=== PATIENT | female | born 1950 | race Caucasian/White ===

== ENCOUNTER → 2018-02-04 07:51 | Outpatient (CLI) | payer BC, SELFPAY ==
[2018-02-04 10:41] LABS: ALB/GLOB Ratio 0.9 RATIO (0.9-2.4); AST(SGOT) 17 U/L (15-37); Alanine Aminotransfer ALT/SGPT 29 U/L (13-56); Albumin, Serum 3.7 g/dL (3.2-5.0); Alkaline Phosphatase 103 U/L (45-117); Anion Gap 8 (5-15); BUN 18 mg/dL (7-18); BUN/Creat Ratio 20.7 RATIO (10-20); Calcium,Total 9.8 mg/dL (8.5-10.1); Chloride 107 mmol/L (98-107); Cholesterol 163 mg/dL (200); Creatinine, Serum 0.87 mg/dL (0.55-1.02); EST Glomerular Filtration Rate 69 mL/min (>60); Est Glom Filt Rate - Afr Amer 83 mL/min (>60); Globulin 3.9 g/dL (2.2-4.2); Glucose 95 mg/dL (74-106); High Density Lipoprotein 47 mg/dL; Potassium 4.2 mmol/L (3.5-5.1); Protein, Total 7.6 g/dL (6.4-8.2); Sodium Level 143 mmol/L (136-145); Triglycerides 161 mg/dL; Very Low Density Lipoprotein 32 mg/dL (5-40)
== END ==
PROVIDERS: Family Provider Family Medicine; PCP Family Medicine; Visit Provider Family Medicine
DX: Z00.00 Encounter for general adult medical examination without abnormal findings (principal)
CPT/HCPCS: 36415; 80053; 80061

== ENCOUNTER → 2018-02-20 09:29 | Outpatient (CLI) | payer BC, SELFPAY | PROVIDERS: Family Provider Family Medicine; PCP Family Medicine; Visit Provider Family Medicine | DX: Z12.31 Encounter for screening mammogram for malignant neoplasm of breast (principal) | CPT/HCPCS: 77063; 77067 ==

== ENCOUNTER → 2019-03-07 | Outpatient (CLI) | payer BC, SELFPAY ==
[2018-12-11 13:51] VITALS: BMI 26.6
[2019-03-07 13:59] LABS: Absolute Lymphocyte Count 1.59 X10^3/uL (0.83-4.51); Absolute Neutrophil Count 3.4 X10^3/uL (2.0-7.7); Basophil# 0.05 X10^3/uL; Basophil% 0.9 % (0-1); Eosinophil# 0.12 X10^3/uL; Eosinophils% 2.2 % (0-5); Hematocrit 48.9 % (37-47); Hemoglobin 16.3 g/dL (12.0-15.0); Lymphocyte # 1.59 X10^3/ul (4.0); Lymphocyte % 28.6 % (19-41); Mean Corp Hgb Conc 33.3 g/dL (32-36); Mean Corpuscular Hgb 29.6 pg (27.0-32.0); Mean Corpuscular Volume 88.7 fL (81-99); Mean Platelet Vol. 9.9 fl (6.2-12.0); Monocyte# 0.41 X10^3/uL; Monocyte% 7.4 % (0-10); NRBC Flagged by Analyzer 0 % (0-5); Neutrophil # 3.38 X10^3/uL (2.7-7.7); Neutrophil % 60.7 % (47-70); Platelet Count 278 K/mm3 (150-450); RBC Distribution Width CV 11.9 % (11.6-14.6); RBC Distribution Width SD 38.7 fl (35.1-43.9); Red Blood Count 5.51 M/mm3 (4.2-5.4); White Blood Count 5.6 K/mm3 (4.4-11.0)
[2019-03-07 14:21] LABS: Microalbumin,Random Urine 21.1 mg/L (NO RANGE EST.); Microalbumin:Creatinine Ratio 16.4 mg/g CRE (<30 mg/g CRE)
[2019-03-07 14:24] LABS: ALB/GLOB Ratio 1.1 RATIO (0.9-2.4); AST(SGOT) 18 U/L (15-37); Alanine Aminotransfer ALT/SGPT 23 U/L (13-56); Alkaline Phosphatase 117 U/L (45-117); Anion Gap 5 (5-15); BUN 17 mg/dL (7-18); BUN/Creat Ratio 20.8 RATIO (10-20); Calcium,Total 10.4 mg/dL (8.5-10.1); Chloride 107 mmol/L (98-107); Creatinine, Serum 0.82 mg/dL (0.55-1.02); EST Glomerular Filtration Rate 74 mL/min (>60); Est Glom Filt Rate - Afr Amer 89 mL/min (>60); Ferritin 273 ng/mL (8-252); Globulin 3.8 g/dL (2.2-4.2); Glucose 91 mg/dL (74-106); Potassium 4.1 mmol/L (3.5-5.1); Protein, Total 7.8 g/dL (6.4-8.2); Sodium Level 142 mmol/L (136-145); Thyroid Stim Hormone (TSH) 0.96 uIU/mL (0.358-3.74)
== END | disposition home or self-care (01) ==
LOC: MFPLAB 12:18
PROVIDERS: Family Provider Family Medicine; PCP Family Medicine; Visit Provider Family Medicine
DX: I10 Essential (primary) hypertension (principal); R68.89 Other general symptoms and signs
CPT/HCPCS: 36415; 80053; 82043; 82570; 82728; 84443; 85025

== ENCOUNTER → 2019-03-16 | Outpatient (CLI) | payer BC, SELFPAY ==
[2018-12-11 13:51] VITALS: BMI 26.6
[2019-03-16 18:24] LABS: Iron 112 ug/dL (50-170); Iron Binding Capacity,Total 355 ug/dL (250-450); Magnesium 2.6 mg/dL (1.6-2.6); PERCENT IRON SATURATION 31.5 % (15.0-55.0)
[2019-03-17 10:03] LABS: PTHIN 100.4 pg/mL (18.4-80.1)
[2019-03-21 13:52] LABS: Transferrin 274 mg/dL (200-370)
== END | disposition home or self-care (01) ==
LOC: MFPLAB 16:54
PROVIDERS: Family Provider Family Medicine; PCP Family Medicine; Referring Provider Family Medicine; Visit Provider Family Medicine
DX: E83.10 Disorder of iron metabolism, unspecified (principal); E83.52 Hypercalcemia
CPT/HCPCS: 36415; 82330; 83540; 83550; 83735; 83970; 84466

== ENCOUNTER → 2019-03-21 | Outpatient (CLI) | payer BC, SELFPAY ==
[2018-12-11 13:51] VITALS: BMI 26.6
[2019-03-21 12:37] LABS: Absolute Lymphocyte Count 1.81 X10^3/uL (0.83-4.51); Absolute Neutrophil Count 3.2 X10^3/uL (2.0-7.7); Basophil# 0.03 X10^3/uL; Basophil% 0.5 % (0-1); Eosinophil# 0.34 X10^3/uL; Eosinophils% 5.9 % (0-5); Hematocrit 44.6 % (37-47); Hemoglobin 14.6 g/dL (12.0-15.0); Lymphocyte # 1.81 X10^3/ul (4.0); Lymphocyte % 31.2 % (19-41); Mean Corp Hgb Conc 32.7 g/dL (32-36); Mean Corpuscular Hgb 28.9 pg (27.0-32.0); Mean Corpuscular Volume 88.1 fL (81-99); Mean Platelet Vol. 9.9 fl (6.2-12.0); Monocyte# 0.38 X10^3/uL; Monocyte% 6.5 % (0-10); NRBC Flagged by Analyzer 0 % (0-5); Neutrophil # 3.23 X10^3/uL (2.7-7.7); Neutrophil % 55.6 % (47-70); Platelet Count 242 K/mm3 (150-450); RBC Distribution Width CV 11.9 % (11.6-14.6); RBC Distribution Width SD 38.4 fl (35.1-43.9); Red Blood Count 5.06 M/mm3 (4.2-5.4); White Blood Count 5.8 K/mm3 (4.4-11.0)
[2019-03-21 12:58] LABS: Microalbumin,Random Urine 11.8 mg/L (NO RANGE EST.)
[2019-03-21 13:03] LABS: ALB/GLOB Ratio 1.1 RATIO (0.9-2.4); AST(SGOT) 13 U/L (15-37); Alanine Aminotransfer ALT/SGPT 22 U/L (13-56); Alkaline Phosphatase 128 U/L (45-117); Anion Gap 6 (5-15); BUN 22 mg/dL (7-18); BUN/Creat Ratio 29.8 RATIO (10-20); Calcium,Total 10.5 mg/dL (8.5-10.1); Chloride 108 mmol/L (98-107); Creatinine, Serum 0.74 mg/dL (0.55-1.02); EST Glomerular Filtration Rate 83 mL/min (>60); Est Glom Filt Rate - Afr Amer 100 mL/min (>60); Globulin 3.7 g/dL (2.2-4.2); Glucose 87 mg/dL (74-106); Magnesium 2.4 mg/dL (1.6-2.6); Protein, Total 7.7 g/dL (6.4-8.2); Sodium Level 141 mmol/L (136-145)
[2019-03-22 19:13] LABS: PROEL- A/G Ratio 1.2 (0.7-1.7); PROEL- Albumin 3.8 g/dL (2.9-4.4); PROEL- Alpha-1 Globulin 0.3 g/dL (0.0-0.4); PROEL- Alpha-2 Globulin 0.8 g/dL (0.4-1.0); PROEL- Beta Globulin 1.2 g/dL (0.7-1.3); PROEL- Gamma Globulin 1.1 g/dL (0.4-1.8); PROEL- Globulin, Total 3.3 g/dL (2.2-3.9); PROEL- TOTAL PROTEIN 7.1 g/dL (6.0-8.5)
== END | disposition home or self-care (01) ==
LOC: MFPLAB 10:54
PROVIDERS: Family Provider Family Medicine; PCP Family Medicine; Visit Provider Family Medicine
DX: I10 Essential (primary) hypertension (principal); E83.52 Hypercalcemia
CPT/HCPCS: 36415; 80053; 82043; 82306; 82570; 83735; 84165; 85025

== ENCOUNTER → 2019-03-31 | Outpatient (CLI) | payer BC, SELFPAY ==
[2018-12-11 13:51] VITALS: BMI 26.6
--- NOTE | 2019-03-31 11:53 | US_ITS ---
STUDY: THYROID ULTRASOUND REASON FOR EXAM: Female, 68 years old. Hyperparathyroidism TECHNIQUE: Ultrasound evaluation of the thyroid was performed with real-time and static hooker-scale imaging. COMPARISON: None. FINDINGS: RIGHT LOBE: The right lobe of the thyroid gland measures 4.4 x 1.9 x 1.4 cm. There is a homogeneous echotexture. 8 mm hypoechoic nodule the right lobe consistent with an adenoma. Another 6 mm hypoechoic nodule more posteriorly consistent with an adenoma. Another 8 mm hypoechoic nodule consistent with another adenoma. Another 6 mm hypoechoic nodule consistent with an adenoma. LEFT LOBE: The left lobe of the thyroid gland measures 3.8 x 1.7 x 1.1 cm. There is a homogeneous echotexture. 4 mm hypoechoic nodule left lobe consistent with an adenoma. Another 4 mm hypoechoic nodule medially in the left lobe consistent with an adenoma. ISTHMUS: The isthmus measures 3 9 m thick. . There are small hypoechoic areas posterior to the thyroid gland on the right measuring 8 mm in diameter which may represent the parathyroid gland. US/Thyroid IMPRESSION: 1. Multinodular thyroid gland but no dominant nodule requiring biopsy. 2. Questionable 8 mm right parathyroid gland Electronically Signed: Dario Sin MD at 13:49 EDT Tel , Service support ,
== END | disposition home or self-care (01) ==
LOC: US 11:48
PROVIDERS: Family Provider Family Medicine; PCP Family Medicine; Referring Provider Family Medicine; Visit Provider Family Medicine
DX: E21.5 Disorder of parathyroid gland, unspecified (principal)
CPT/HCPCS: 76536

== ENCOUNTER 2019-04-07 15:30 | Outpatient (RCR) | payer BC, SELFPAY ==
[2018-12-11 13:51] VITALS: BMI 26.6
--- NOTE | 2019-03-24 13:45 | HP.PTEVAL ---
Patient's Visit Information FROYLAN SELF is a 68 year old F referred to Physical Therapy by Jaciel Jaime MD with a diagnosis of R RTC tendonosis. Date of Evaluation: 03/16/19 Physical Therapist: Demarcus Salomon DPT - Visit Plan Frequency: 1x/Week Duration: 8 weeks Plan: Start wtih US to subacromial space, AAROM of R shoulder, mid trap/scapular strengthening. Progress HEP as tolerated. - Subjective Findings: Pt. is here today for her initial evaluiation with diagnosis of R shoulder pain, rotator cuff tendonsis. Pt. reports having R shoulder pain for a few weeks to a few months. Pt. reports having xrays which came back without issues. Pt. denies mech of injury. Pt. reports having increased pain with sleeping, raising her arm and some ADLs that cause her to rotate her arm. Pt. reports having some relief with ibuprophen and or alieve. pt. reports no completing any exercises at this point in time. Pt. is able to complete most activities, but has some increased pain throughout. Pt. is hopeful to reduce symptoms in order to get back to all recreational and household activities without limitations. - Pain R shoulder Pain Intensity (Out of 10): 2 Pain Intensity Range: 0, 6 - Objective POSTURE: Pt. has slight forward shoulder posture, FH posture. Pt. is able to improve, but difficult to maintain. PALPATION: Pt. has tenderness at anterior and lateral aspects of subacromial joint. NEURO: normal throughout bilateral UEs. ROM: R shoulder: flexion 170deg increase NE starting at 130deg; abd 165deg increase NW, functional ER C4, functional IR L3 mild increase nW,. MMT: 4+/5 throughout. Pt. has increase pain with flexion and abd testing. - Special Tests R Shoulder External Rotation Lag Test - RC Tear: Negative R Shoulder Lift Off Test - Subscapular Tear: Negative R Shoulder Drop Sign - IS Test: Negative R Shoulder Empty Can - SS: Positive R Shoulder Belly Press - SupScap: Negative R Shoulder Neer - Impingement: Positive R Shoulder Biceps Load Test - Labrum: Negative R Shoulder Yeargasons - SLAP: Negative - Goals Goal 1:: Pt. to be I with HEP. Goal Time Frame: 4-6 Weeks Goal 2:: Pt. to have full R shoulder ROM without increase in symptoms. Goal Time Frame: 4-6 Weeks Goal 3:: Pt. to have increased R shoulder strength by 1/2 grade of all effected musculature. Goal Time Frame: 4-6 Weeks Goal 4:: Pt. to sleep throughout the night without increase in symptoms. Goal Time Frame: 4-6 Weeks Goal 5:: Pt. complete all household and ADLs without increas in symptoms. Goal Time Frame: 4-6 Weeks - Rehabilitation Potential Physical Therapy Diagnosis: Pt. has signs and symptoms consistent with R RTC tendonitis. PT. has decent ROM, but has pain with overhead motions. Pt. has adequate strength, but is still weak with overhead motions and with external rotation. Pt. would benefit from PT to increase her strength, reduce symptoms and get back to all recreational activities with reduced symptoms. Rehabilitation Potential: Good - Anticipated Interventions Patient/Client Instruction: Educate patient on: Condition, Plan of Care, Risk Factors, Benefits of Fitness Program For the Purpose of:: To facilitate caregiver knowledge, To improve self management, To prevent re-injury, To improve ability to perform tasks related to life management, To improve tolerance to ADL's Therapeutic Exercise to Include: Strength training, Power training, Endurance training, Postural training, Flexibilty training, Passive ROM, Active ROM, Scapular Strength/Stabilization For the Purpose of:: To decrease pain, To increase ROM, To improve nutrient delivery to tissue, To increase oxygenation perfusion, To improve muscle performance and motor function, To improve ability to perform ADL's, To decrease level of supervision to perform tasks, To improve health of tissue, To decrease soft tissue restriction, To increase flexibility/ROM Cryotherapy (ice pack, ice massage): Yes Thermo therapy (hot pack): Yes Ultrasound (thermal/non thermal): Yes For the Purpose of:: To decrease pain, To decrease swelling/inflammation, To increase ROM, To improve nutrient delivery to tissue, To increase oxygenation perfusion, To improve muscle performance and motor function Thank you for the opportunity to evaluate your patient. For Medicare and Medicare HMO plans, please review the plan of care and approve it. It will need to be FAXED BACK to us at [phone] for Medicare purposes. For Medicare only, by signing this I certify the plan of care. Please let me know if there are questions or concerns regarding this plan of care. Physician Signature: Date:
--- NOTE | 2019-10-04 08:52 | HP.PTDCNRP_ITS ---
FROYLAN SELF was seen in my office for initial evaluation on 03/16/19. The following Plan of Care was established for this patient: Initial Frequency: 1x/Week Initial Duration: 8 weeks Patient/Client Instruction: Educate patient on: Condition, Plan of Care, Risk Factors, Benefits of Fitness Program For the Purpose of:: To facilitate caregiver knowledge, To improve self management, To prevent re-injury, To improve ability to perform tasks related to life management, To improve tolerance to ADL's Therapeutic Exercise to Include: Strength training, Power training, Endurance training, Postural training, Flexibilty training, Passive ROM, Active ROM, Sca pular Strength/Stabilization For the Purpose of:: To decrease pain, To increase ROM, To improve nutrient delivery to tissue, To increase oxygenation perfusion, To improve muscle performance and motor function, To improve ability to perform ADL's, To decrease level of supervision to perform tasks, To improve health of tissue, To decrease soft tissue restriction, To increase flexibility/ROM Cryotherapy (ice pack, ice massage): Yes Thermo therapy (hot pack): Yes Ultrasound (thermal/non thermal): Yes For the Purpose of:: To decrease pain, To decrease swelling/inflammation, To increase ROM, To improve nutrient delivery to tissue, To increase oxygenation perfusion, To improve muscle performance and motor function This patient was last seen in our office 06/07/19. Pertinent comments regarding their Physical therapy will appear below: Pt. has not been seen in several months and will be DC from PT at this point in time. At this point I will be discontinuing this patient from physical therapy. I would be happy to see this patient again in the future if found appropriate by the physician. Thank you! Demarcus Salomon, VIANEYT
== END 2019-04-07 19:00 | disposition home or self-care (01) ==
LOC: PT 15:30
PROVIDERS: Family Provider Family Medicine; PCP Family Medicine; Referring Provider Family Medicine; Visit Provider Family Medicine
DX: M25.511 Pain in right shoulder (principal); M75.101 Unspecified rotator cuff tear or rupture of right shoulder, not specified as traumatic
CPT/HCPCS: 97035; 97110; 97161

== ENCOUNTER → 2019-04-26 | Outpatient (CLI) | payer BC, SELFPAY ==
[2019-04-19 09:03] VITALS: BMI 26.6
--- NOTE | 2019-04-26 09:41 | NM_ITS ---
CLINICAL: 68-year-old female with reported history of hypercalcemia. 99m Tc SESTAMIBI DUAL PHASE PARATHYROID SCINTIGRAPHY COMPARISON: None available FINDINGS: Following the intravenous administration of 25.0 mCi of 99m Tc sestamibi, image acquisitions of the anterior neck at approximately 20 minutes and 2.0 hours post radiopharmaceutical provision reveal: 1. Immediate static blood pool acquisitions demonstrate relatively uniform distribution of the radiopharmaceutical in the right-left thyroid colloid was subtle accentuated uptake noted in the inferior pole of the right thyroid bed. 2. Delayed images depict persistent tracer concentration noted in the region of the inferior pole of the right thyroid bed with near complete washout of the radiotracer otherwise defined. NM/Parathyroid Scan IMPRESSION: 1. The persistently visualized increase in radiopharmaceutical concentration defined in the inferior pole of the right thyroid bed likely represents the presence of parathyroid adenoma. Electronically Signed: Dario Mark DO at 23:38 EST Tel , Service support ,
== END | disposition home or self-care (01) ==
LOC: NM 09:40
PROVIDERS: Family Provider Family Medicine; PCP Family Medicine; Referring Provider Surgery; Visit Provider Surgery
DX: E34.9 Endocrine disorder, unspecified (principal); E83.52 Hypercalcemia
CPT/HCPCS: 78070; A9500

== ENCOUNTER 2019-05-16 10:12 | Day surgery (SDC) | payer BC, SELFPAY ==
--- NOTE | 2019-04-28 01:23 | HP_ITS ---
Intake Vital Signs 04/28/19 Body Mass Index (BMI) 26.6 Intake Visit Reasons: Test Results Chief Complaint: RASH/ABD PAIN Assistant Research Scientist Required: No Is patient in pain?: No Allergies bacitracin [From Neosporin Plus] Allergy (Severe, Verified 04/28/19 12:55) unknown indomethacin [From Indocin] Allergy (Severe, Verified 04/28/19 12:55) unknown lidocaine [From Neosporin Plus] Allergy (Severe, Verified 04/28/19 12:55) unknown neomycin [From Neosporin Plus] Allergy (Severe, Verified 04/28/19 12:55) unknown polymyxin B [From Neosporin Plus] Allergy (Severe, Verified 04/28/19 12:55) unknown pramoxine [From Neosporin Plus] Allergy (Severe, Verified 04/28/19 12:55) unknown prednisone Allergy (Severe, Verified 04/28/19 12:55) unknown tramadol [From Ultram] Allergy (Severe, Verified 04/28/19 12:55) unknown Medications atorvastatin 10 mg tablet 10 mg PO QDAY 10/08/17 [History Confirmed 04/28/19] multivitamin,fs-xoem-xnhhnarn tablet 1 tab PO QDAY 10/08/17 [History Confirmed 04/28/19] amlodipine 2.5 mg tablet 10 mg PO QDAY tab 04/19/19 [History Confirmed 04/28/19] PFSH Medical History Arthritis (Acute) Cancer (Acute) Chest pain (Acute) Fatigue (Acute) Hay fever (Acute) Knee pain (Acute) Hypertension (Chronic) Surgical History S/P laparoscopic cholecystectomy (Acute) Family History Mother Asthma Kidney disease Thyroid disorder Father Heart disease Hypertension CAD (coronary artery disease) Sister Seizures Social History (Updated 04/28/19 @ 13:23 by Neel Hall MD) Smoking Status: Never smoker alcohol intake: never HPI HPI HPI: FROYLAN SELF, is a 68 F who presents to the office today for HPI HPI Surgical H&P: Yes HPI: FROYLAN SELF, is a 68 F who presents to the office today for Follow-up from a sestamibi scan. Patient underwent a sestamibi scan it was [facility] on 04/26/2019. Impression was persistently visualized increased radio pharmacological concentration defined in the inferior pole of the right thyroid bed likely representing the presence of a parathyroid adenoma. She has Been evaluation for hyperparathyroidism has had an serum calcium level greater than 10 PTH greater than 100 and recently an ultrasound of the neck which showed a questionable 8 mm right parathyroid adenoma. Patient however has not had a sestamibi scan. She is not complaining of any muscle aches or pains she has no history of's stones she has no family history of multiple endocrine neoplasia syndrome ROS General General: No weight change, appetite, fatigue, colon cancer, breast cancer or weakness HEENT HEENT: Yes difficulty swallowing; no eye injury, eye surgery, swollen glands or hoarseness Endo Endocrine: No thyroid disease, diabetes mellitus, thyroid cancer, Hair loss, heat intolerance or cold intolerance Skin Skin: No rash or changing moles Breast Breast: No left breast lump, right breast lump, nipple discharge, breast pain, abnormal mammogram, abnormal US or breast enlargement Musc Musculoskeletal: Yes arthritis; no back problems, rheumatoid arthritis, gout or joint pain Cardio Cardiovascular: Yes high blood pressure; no murmur, pacemaker, heart disease, atrial fibrillation, heart attack, heart stent, palpitations, shortness of breat with exertion or chest pain Psych Psychiatric: No depression, anxiety or hearing voices Resp Respiratory: No shortness of breath, No sleep apnea, Yes cough, No COPD, No asthma, No emphysema, No wheezing Gastro Gastrointestinal: No abdominal pain, No nausea or vomiting, No diarrhea, No constipation, No blood in stool, Yes acid reflux, No hemorrhoids, No ulcers, No gallbladder problem, No black,tarry stools Jose Hematologic: No blood thinners, No blood disorders, No bleeding, No anemia, No blood clots Neuro Neurologic: No weakness Exam Const General: no acute distress, well developed, well hydrated Orientation: oriented to person, oriented to place, oriented to time [facility] Head: normocephalic, atraumatic Ears: external ears normal Mouth: moist mucous membranes Eyes Sclera: sclerae normal Pupils: normal by confrontation Neck Neck: no lymphadenopathy noted Neck mass: No Thyroid: thyroid normal, symmetrical Chest Chest palpation & inspection: normal inspection of the chest Breast Palpation: No nipple discharge Resp Effort & Inspection: normal respiratory effort Auscultation: clear to auscultation bilaterally Percussion: percussion normal Cardio Rate: regular rate Rhythm: regular rhythm Heart Sounds: no murmurs GI Palpation: soft, no hepatosplenomegaly, no masses, nontender Rectal Exam: other Other: Rectal exam deferred. Extrem General: normal to inspection, no clubbing, cyanosis or edema Assessment & Plan Problems 1. Primary hyperparathyroidism E21.0 Plan My plan is to excise a right inferior parathyroid adenoma.We discussed the risks and benefits of the planned procedure. I have informed the patient that complications can occur including failure to complete the procedure. The patient had the opportunity to ask questions concerning the planned procedure. My staff has also explained the procedure to the patient in understandable terms and has given the patient printed material concerning the procedure. The patient freely consents to the procedure. Specifically injuries to the recurrent laryngeal nerve have been discussed. Coding Level of Care Code Off vis,est,level 2 Diagnoses Primary hyperparathyroidism E21.0 04/28/19 1323 <Electronically signed by Neel aparicio MD> Date _ Neel Hall MD I have re-examined the patient. There are no clinical changes since date of exam.
[2019-04-28 12:55] VITALS: BMI 26.6
--- NOTE | 2019-05-13 12:46 | EKG12_ITS ---
Test Reason : PREOP Blood Pressure : / mmHG Vent. Rate : 067 BPM Atrial Rate : 067 BPM P-R Int : 150 ms QRS Dur : 082 ms QT Int : 382 ms P-R-T Axes : 021 045 010 degrees QTc Int : 403 ms Normal sinus rhythm Normal ECG Confirmed by ALEXIS STEWART, SANTOS ([id number]), mapping editor GERMAN CARRION ([id number]) on 05/16/2019 11:26:56 AM Referred By: Neel Hall Confirmed By:SANTOS ESPINOZA MD
[2019-05-16] VITALS (8 sets, daily range): BP systolic 122–142; BP diastolic 46–80; PULSE 55–86; RESP 16–18; TEMP 36.3–37.4; O2SAT 92–97; BMI 34.2
--- NOTE | 2019-05-16 | PARA_PTH ---
PATIENT: FROYLAN SELF LOC: [facility] U#:[id number] AGE/SX: 68/F ROOM: RE05/16/[address]: Dr. Neel Hall MD : 1950 BED: DIS: 05/16/2019 SPEC #: [id number] RECD: 05/16/19 13:42 STATUS: KAI REShakila #: [id number] PHILIPPE: 05/16/19 00:[address]: Neel Hall DEPT: SURGICAL PATHOLOGY RECD BY: Tata Huitron ENTERED: 05/16/19 14:04 SP TYPE: PARATHY OTHR DR: Dr. Jaciel Jaime MD Tissues: Parathyroid Procedures: Frozen Section (charge) Surgery Specimen Level IV HEADER OPERATION: Excision inferior parathyroid adenoma PRE-OP DIAGNOSIS: Primary hyperparathyroidism E21.0 TISSUE SUBMITTED: Right parathyroid FROZEN SECTION DIAGNOSIS Right parathyroid: Parathyroid tissue. SJ:tushar 05/16/19 MICROSCOPIC DIAGNOSIS Right parathyroid, excision: Hyperplastic parathyroid tissue (0.4 gm). See comment. SJ:tushar 05/17/19 COMMENT The specimen shows hyperplastic nodular parathyroid tissue and a thin rim of unremarkable appearing parathyroid tissue at one edge of the specimen. The findings favor parathyroid adenoma. Correlation with clinical, radiologic findings and appropriate follow up are necessary. Case has been reviewed in consultation with Dr. Navarro who concurs with the above diagnosis. IDC:AM MICROSCOPIC DESCRIPTION Slides are reviewed. GROSS DESCRIPTION Received fresh for frozen section diagnosis labeled with the patient's name is a specimen designated right parathyroid. The specimen consists of a piece of maldonado soft tissue weighing 0.4 gm and measuring 1.5 x 1 x 0.5 cm. The specimen is bisected and submitted entirely for frozen section diagnosis in one cassette. / COLBY:tushar 05/16/19 TC:1 CPT: 92848, 55891
[2019-05-16] MEDS: Lactated Ringers 1,000 ML 100 ML IV ×2 (10:52→16:52)
[2019-05-16] MEDS: Cefazolin 2 GM in 0.9% Normal Saline 100 ML IV (13:16)
[2019-05-16] MEDS: BUPIVACAINE LIPOSOME/PF 20 ML VIAL OPERA.SITE (13:22)
--- NOTE | 2019-05-16 13:41 | PCM.OPRPT ---
Problem List (1) Primary hyperparathyroidism Status: Acute Report of Operation Date of Procedure: 05/16/19 Pre-Operative Diagnosis: Primary hyperparathyroidism Post-Operative Diagnosis: Same Surgery/Procedure Performed:: Excision of right inferior parathyroid adenoma Type of Anesthesia:: General Anesthesiologist: Luis Daniel Loera Specimen's removed: Right inferior parathyroid adenoma Estimated Blood Loss (mL): < 25 cc Description of Procedure: She was brought into the operating room. Placed in the supine position. Under excellent general endotracheal intubation towel was placed underneath the shoulder blades and neck was extended. I ultrasound the neck identified the inferior parathyroid adenoma directly inferior to the thyroid gland. The neck was then sterilely prepped and draped in the usual fashion. Local was injected. Cervical incision was made. Subplatysmal flaps were created with use of electrocautery. Midline strap muscles were opened with the use of electrocautery. There was a small vessel in the midline which was clipped with 2 medium clips. I dissected down to the inferior aspect of the thyroid gland identified the inferior parathyroid dissected free with a harmonic dissector and sent it to pathology for a quick frozen section. This did come back and confirmed parathyroid. PTH was drawn. I reviewed brought the midline strap muscles together with a 2-0 Vicryl. Subplatysmal flaps were brought together with a 2-0 Vicryl deep dermals with 3-0 Vicryl then a running 4-0 Monocryl. Dermabond was applied sterile dressings were applied and the patient tolerated the procedure well. - Admit VTE Documentation VTE Present on Admission: No VTE Mechan Device Prophylaxis: SCD's VTE Pharm Prophylaxis ordered?: No Reason prophylaxis not ordered:: Treatment Not Indicated
--- NOTE | 2019-05-16 13:45 | PCM.DC.GS ---
Discharge Diet: Light diet - advance as tolerated - If you have questions about your diet instructions, please talk to your doctor. Discharge Activity: May Not Drive - for 1 week or while taking narcotic pain medicine. May shower in (days): 1 Lifting Restrictions: 10 pounds Call your doctor if your incision/area has: Continuous Slow Oozing, Sudden Increased Bleeding, Increased Pain/ Swelling, Increased Redness, Foul Smelling Discharge Call your doctor if you observe: Fever of 101 or Higher Suture Line Care: Avoid Pulling/Pushing, Avoid Pinching/Bending Additional Dressing/Incision Instructions:: Change or remove dressing in 4 days. Leave steri-strips in place for 1 week. Allergies/Adverse Reactions: Allergies bacitracin [From Neosporin Plus] Allergy (Severe, Verified 05/06/19 14:05) unknown indomethacin [From Indocin] Allergy (Severe, Verified 05/06/19 14:05) unknown lidocaine [From Neosporin Plus] Allergy (Severe, Verified 05/06/19 14:05) unknown neomycin [From Neosporin Plus] Allergy (Severe, Verified 05/06/19 14:05) unknown polymyxin B [From Neosporin Plus] Allergy (Severe, Verified 05/06/19 14:05) unknown pramoxine [From Neosporin Plus] Allergy (Severe, Verified 05/06/19 14:05) unknown prednisone Allergy (Severe, Verified 05/06/19 14:05) unknown tramadol [From Ultram] Allergy (Severe, Verified 05/06/19 14:05) unknown Medications to take at Discharge atorvastatin 10 mg tablet 10 mg PO QDAY 10/08/17 multivitamin,ze-idzf-wcibiaqe tablet 1 tab PO QDAY 10/08/17 amlodipine 2.5 mg tablet 10 mg PO QHS tab 04/19/19 Ibuprofen 400 mg PO QHS 05/06/19 Ibuprofen [Advil] 200 mg PO DAILY 05/06/19 Orders to be completed after discharge: 12 Lead EKG [[facility]] Time Frame: 05/06/19, Facility: [facility], Location: Cardiovascular Services Primary Care Physician: Jaciel Jaime MD [Primary Care Provider] - Test Results: Test results from this visit will be discussed in further detail at your follow-up appointment, if applicable. Please Follow Up With: Neel Hall MD - [phone] When: Call to make an appointment to be seen in about 10 days.
[2019-05-16 14:34] LABS: PTHIN 55.2 pg/mL (18.4-80.1)
[2019-05-16] MEDS: oxyCODONE 5 MG Tablet PO (16:02)
[2019-05-16] MEDS: Acetaminophen 325 MG Tablet PO (16:02)
== END 2019-05-16 17:41 | disposition home or self-care (01) ==
LOC: SDC 10:15 → AC 10:16
PROVIDERS: Family Provider Family Medicine; PCP Family Medicine; Referring Provider Surgery; Visit Provider Surgery
PROC: (CPT 60500; principal; 2019-05-16 12:00)
DX: E21.0 Primary hyperparathyroidism (principal); D35.1 Benign neoplasm of parathyroid gland; I10 Essential (primary) hypertension; M19.90 Unspecified osteoarthritis, unspecified site; E78.00 Pure hypercholesterolemia, unspecified; Z79.899 Other long term (current) drug therapy
CPT/HCPCS: 00320; 60500; 83970; 88305; 88331; 93005; J7120; J2405

== ENCOUNTER → 2019-05-26 10:28 | Outpatient (CLI) | payer BC, SELFPAY ==
[2019-05-16 10:38] VITALS: BMI 34.2
[2019-05-26 11:17] LABS: Calcium,Total 9.7 mg/dL (8.5-10.1)
[2019-05-26 11:41] LABS: PTHIN 43.9 pg/mL (18.4-80.1)
== END ==
PROVIDERS: Family Provider Family Medicine; PCP Family Medicine; Referring Provider Physician Assistant; Visit Provider Physician Assistant
DX: E21.0 Primary hyperparathyroidism (principal)
CPT/HCPCS: 36415; 82310; 83970

== ENCOUNTER → 2019-11-26 09:32 | Outpatient (CLI) | payer BC, SELFPAY ==
[2019-05-16 10:38] VITALS: BMI 34.2
[2019-11-26 10:40] LABS: ALB/GLOB Ratio 1.1 RATIO (0.9-2.4); AST(SGOT) 15 U/L (15-37); Alanine Aminotransfer ALT/SGPT 30 U/L (13-56); Albumin, Serum 3.9 g/dL (3.2-5.0); Alkaline Phosphatase 94 U/L (45-117); Anion Gap 6 (5-15); BUN 16 mg/dL (7-18); BUN/Creat Ratio 19.5 RATIO (10-20); Calcium,Total 9.1 mg/dL (8.5-10.1); Chloride 106 mmol/L (98-107); Cholesterol 187 mg/dL (200); Creatinine, Serum 0.82 mg/dL (0.55-1.02); EST Glomerular Filtration Rate 73 mL/min (>60); Est Glom Filt Rate - Afr Amer 89 mL/min (>60); Globulin 3.7 g/dL (2.2-4.2); Glucose 93 mg/dL (74-106); High Density Lipoprotein 54 mg/dL; Protein, Total 7.6 g/dL (6.4-8.2); Sodium Level 140 mmol/L (136-145); Triglycerides 161 mg/dL; Very Low Density Lipoprotein 32 mg/dL (5-40)
[2019-11-26 10:50] LABS: Microalbumin,Random Urine 7.9 mg/L (NO RANGE EST.); Microalbumin:Creatinine Ratio 5.3 mg/g CRE (<30 mg/g CRE)
== END ==
PROVIDERS: PCP Family Medicine; Visit Provider Family Medicine
DX: E78.00 Pure hypercholesterolemia, unspecified (principal); I10 Essential (primary) hypertension
CPT/HCPCS: 36415; 80053; 80061; 82043; 82570

== ENCOUNTER → 2020-04-27 09:41 | Outpatient (CLI) | payer BC, SELFPAY ==
[2019-05-16 10:38] VITALS: BMI 34.2
[2020-04-27 12:58] LABS: Absolute Lymphocyte Count 1.52 X10^3/uL (0.83-4.51); Absolute Neutrophil Count 3.2 X10^3/uL (2.0-7.7); Basophil# 0.05 X10^3/uL; Basophil% 0.9 % (0-1); Eosinophil# 0.12 X10^3/uL; Eosinophils% 2.3 % (0-5); Hematocrit 44.8 % (37-47); Hemoglobin 14.7 g/dL (12.0-15.0); Lymphocyte # 1.52 X10^3/ul (4.0); Lymphocyte % 28.7 % (19-41); Mean Corp Hgb Conc 32.8 g/dL (32-36); Mean Corpuscular Hgb 29.6 pg (27.0-32.0); Mean Corpuscular Volume 90.1 fL (81-99); Monocyte# 0.39 X10^3/uL; Monocyte% 7.4 % (0-10); NRBC Flagged by Analyzer 0 % (0-5); Neutrophil % 60.5 % (47-70); Platelet Count 281 K/mm3 (150-450); RBC Distribution Width SD 39.1 fl (35.1-43.9); Red Blood Count 4.97 M/mm3 (4.2-5.4); White Blood Count 5.3 K/mm3 (4.4-11.0)
[2020-04-27 13:02] LABS: ALB/GLOB Ratio 1.1 RATIO (0.9-2.4); AST(SGOT) 14 U/L (15-37); Alanine Aminotransfer ALT/SGPT 24 U/L (13-56); Alkaline Phosphatase 100 U/L (45-117); Anion Gap 3 (5-15); BUN 19 mg/dL (7-18); BUN/Creat Ratio 24.5 RATIO (10-20); Calcium,Total 9.6 mg/dL (8.5-10.1); Chloride 108 mmol/L (98-107); Creatinine, Serum 0.77 mg/dL (0.55-1.02); EST Glomerular Filtration Rate 78 mL/min (>60); Est Glom Filt Rate - Afr Amer 95 mL/min (>60); Globulin 3.7 g/dL (2.2-4.2); Glucose 113 mg/dL (74-106); Potassium 4.1 mmol/L (3.5-5.1); Protein, Total 7.7 g/dL (6.4-8.2); Sodium Level 140 mmol/L (136-145)
[2020-04-27 13:29] LABS: PTHIN 19.1 pg/mL (18.4-80.1)
== END ==
PROVIDERS: PCP Family Medicine; Referring Provider Family Medicine; Visit Provider Family Medicine
DX: C84.A0 Cutaneous T-cell lymphoma, unspecified, unspecified site (principal); D35.1 Benign neoplasm of parathyroid gland
CPT/HCPCS: 36415; 80053; 83970; 85025

== ENCOUNTER → 2020-06-07 09:24 | Outpatient (CLI) | payer BC, SELFPAY ==
--- NOTE | 2020-06-07 09:27 | BI_ITS ---
MAMMOGRAPHY - BILATERAL SCREENING REASON FOR EXAM: Female, 69 years old. Routine annual screening examination. PERTINENT HISTORY: Non-contributory. TECHNIQUE: Digital bilateral breast leon (3D mammographic acquisition) in the CC and MLO projections. 2-D mediolateral oblique (MLO) and craniocaudad (CC) views of both breasts were obtained. CAD: Full Field Digital Mammography with Computer Added Detection was performed. COMPARISON: Comparison is made with prior study dated 02/21/2008. FINDINGS: Breast Composition: The breasts are heterogeneously dense, which may obscure small masses. There are no dominant masses or suspicious calcifications. No other significant abnormalities are identified. There has been no significant change since the prior study. BI/SCREEN MAMM (CAD) W/LEON BILAT IMPRESSION: Stable bilateral screening mammogram. Yearly follow-up mammogram recommended. (A) ASSESSMENT CATEGORY: BIRADS Category 1: Negative. A letter regarding these results will be sent to the patient by the facility within 30 days. Approximately 10% of breast cancers are not detected by mammography. A normal mammogram should not delay biopsy of a clinically suspicious abnormality. [id number] Electronically Signed: Denis Caldwell, at 11:13 EST , Service support ,
--- NOTE | 2020-06-07 09:28 | BD_ITS ---
STUDY: DUAL ENERGY X-RAY ABSORPTIOMETRY / DXA REASON FOR EXAM: Female, 69 years old. 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 COMPARISON: None. FINDINGS: Lumbar Spine (L1-L4): g/cm2 (0.937) / T-score (-2.0) / Z-score (-0.3) Findings are suggestive of osteopenia with a moderate fracture risk. Left Femur Total: g/cm2 (0.922) / T-score (-0.7) / Z-score (0.8) Left Femoral Neck: g/cm2 (0.883) / T-score (-1.1) / Z-score (0 point) Right Femur Total: g/cm2 (0.881) / T-score (-1.0) / Z-score (0.5) Right Femoral Neck: g/cm2 (0.808) / T-score (-1.7) / Z-score (0.1) BD/Dexa Bone Density Study IMPRESSION: The patient is considered osteopenic as outlined below according to World Oscar Organization (WHO) criteria with a moderate fracture risk. Reference Information: The T-score is the number of standard deviations above or below the standard which is normal for young adults at their peak bone mineral density. The World Health Organization (WHO) interprets the T-scores as follows: Above -1 Normal bone density Between -1 and -2.5 Osteopenia Equal to / or below -2.5 Osteoporosis As a practical clinical guideline, osteopenia may be graded as follows: Mild -1 through -1.5 Moderate -1.6 through -2.0 Severe -2.1 through -2.4 The Z-score is the number of standard deviations above or below age-matched controls. A Z-score of less than -1.5 would be considered abnormal. References: 1. NIH Osteoporosis and Related Bone Diseases www osteo.org 2. International Society for Clinical Densitometry www iscd.org 3. National Osteoporosis Foundation www nof.org Electronically Signed: Denis Caldwell, at 12:38 EST , Service support ,
== END ==
PROVIDERS: PCP Family Medicine; Referring Provider Family Medicine; Visit Provider Family Medicine
DX: Z78.0 Asymptomatic menopausal state (principal); Z12.31 Encounter for screening mammogram for malignant neoplasm of breast
CPT/HCPCS: 77063; 77067; 77080

== ENCOUNTER 2020-08-21 11:17 | Outpatient (RCR) | payer BC, SELFPAY ==
[2020-08-21] MEDS: COVID-19 VACC, MRNA(PFIZER)/PF 30 MCG/0.3 ML SYRINGE IM (17:46)
[2020-09-11] MEDS: COVID-19 VACC, MRNA(PFIZER)/PF 30 MCG/0.3 ML SYRINGE IM (17:22)
== END 2020-11-20 23:59 ==
LOC: IMMUN 11:17
PROVIDERS: PCP Family Medicine; Visit Provider Family Medicine
DX: Z23 Encounter for immunization (principal)
CPT/HCPCS: 0001A; 0002A; 91300

== ENCOUNTER → 2021-05-02 10:48 | Outpatient (CLI) | payer BC, SELFPAY ==
[2021-05-02 12:50] LABS: Anion Gap 4 (5-15); BUN 18 mg/dL (7-18); BUN/Creat Ratio 21.6 RATIO (10-20); Chloride 108 mmol/L (98-107); Cholesterol 173 mg/dL (200); Creatinine, Serum 0.83 mg/dL (0.55-1.02); EST Glomerular Filtration Rate 72 mL/min (>60); Est Glom Filt Rate - Afr Amer 87 mL/min (>60); Glucose 93 mg/dL (74-106); High Density Lipoprotein 52 mg/dL; Potassium 4.4 mmol/L (3.5-5.1); Sodium Level 138 mmol/L (136-145); Triglycerides 141 mg/dL; Very Low Density Lipoprotein 28 mg/dL (5-40)
== END ==
PROVIDERS: PCP Family Medicine; Referring Provider Family Medicine; Visit Provider Nurse Practitioner Family
DX: I10 Essential (primary) hypertension (principal); E78.00 Pure hypercholesterolemia, unspecified; R53.83 Other fatigue
CPT/HCPCS: 36415; 80048; 80061; 84443

== ENCOUNTER → 2021-05-16 16:46 | Outpatient (CLI) | payer BC, SELFPAY | PROVIDERS: PCP Family Medicine; Visit Provider Family Medicine | DX: Z20.822 Contact with and (suspected) exposure to COVID-19 (principal) | CPT/HCPCS: 87635; U0005; U0003 ==

== ENCOUNTER → 2021-06-10 09:40 | Outpatient (CLI) | payer BC, SELFPAY ==
--- NOTE | 2021-06-10 09:42 | BI_ITS ---
MAMMOGRAPHY - BILATERAL SCREENING 3-D TOMOSYNTHESIS REASON FOR EXAM: Female, 70 years old. SCREENING PERTINENT HISTORY: No significant family history. TECHNIQUE: 2-D mammograms and 3-D Tomosynthesis of the breast (s) were performed. CAD was performed. COMPARISON: 06/07/2020 FINDINGS: The breast composition is composed of scattered fibroglandular density. Scattered benign calcifications are seen. No dense spiculated masses or suspicious microcalcifications are identified. No architectural distortion is identified. There is no skin thickening or retraction. There has been no significant change since the prior study. BI/SCREENING MAMM (CAD), BILAT IMPRESSION: No mammographic signs of malignancy. Routine yearly mammograms recommended. ASSESSMENT CATEGORY: BIRADS Category 1: Negative. A letter regarding these results will be sent to the patient by the facility within 30 days. FOLLOW UP RECOMMENDATION: Yearly follow up mammogram recommended. (A) Approximately 10% of breast cancers are not detected by mammography. A normal mammogram should not delay biopsy of a clinically suspicious abnormality. Electronically Signed: Dario Sin MD at 11:28 EST Tel , Service support ,
== END ==
PROVIDERS: PCP Family Medicine; Referring Provider Nurse Practitioner Family; Visit Provider Nurse Practitioner Family
DX: Z12.31 Encounter for screening mammogram for malignant neoplasm of breast (principal)
CPT/HCPCS: 77067

== ENCOUNTER 2021-08-25 13:32 | Emergency (ER) | payer BC, SELFPAY ==
[2021-08-25 13:34] VITALS: BP 187/96; PULSE 120; RESP 18; TEMP 36.6; O2SAT 98; BMI 35.4
--- NOTE | 2021-08-25 13:46 | CT_ITS ---
STUDY: CT BRAIN WITHOUT CONTRAST REASON FOR EXAM: Female, 70 years old. head injury X 2 WEEKS AGO RADIATION DOSAGE (If Supplied By Facility): CTDIvol = ( 44.99 ) mGy, DLP = ( 745.49 ) mGycm TECHNIQUE: Transaxial CT imaging of the brain was performed without administration of intravenous contrast material. Individualized dose optimization techniques were used for this CT. COMPARISON: No relevant priors. FINDINGS: Normal soft tissue structures. Normal calvarium. Normal size ventricles and extra-axial spaces for the patient''s age. Normal white matter tracts of the cerebral hemispheres. Normal basal ganglia and thalami. Normal brainstem. Normal cerebellum. There is no intracranial hemorrhage. There are no findings of an acute ischemic infarction. Normal visualized paranasal sinuses. CT/Brain/Head without Contrast IMPRESSION: No evidence of acute intracranial bleed, mass or ischemia. Electronically Signed: Landon Vargas DO at 14:41 EDT ,
--- NOTE | 2021-08-25 13:47 | EDS_ITS ---
HPI History of Present Illness Chief Complaint: General Illness Detail of Chief Complaint: Head injury and chest pain Informant: patient Narrative Narrative: Patient presents to the emergency department complaint of intermittent head pain since she had an injury 3 weeks ago. Patient states that she slipped on the ice and hit her head on ice and had a small cut. She is had intermittent pain and burning to the scalp at that location. She has the discomfort today as well. She denies nausea or vomiting. She denies visual changes. Patient states that while riding in a friend's car yesterday that he was on it was quite textile machinery sales representative the car and she started having some chest burning that lasted a few minutes then resolved. Patient states that she was short of breath walking from her car to the ER today. No heart history. No recent tr [place] or surgery. Patient is not on blood thinners. Prior similar symptoms: No PFSH PFSH Medical History (Updated 08/25/21 @ 16:[address] Reba Collazo, DO) Arthritis Cancer Chest pain Fatigue Hay fever Hypertension Knee pain Home Medications atorvastatin 10 mg tablet 10 mg PO QDAY 10/08/17 [History Last Taken 05/15/19] multivitamin,jn-[id number]-xyorjyuo 1 tab PO QDAY 10/08/17 [History Last Taken Unknown] amlodipine 2.5 mg tablet 10 mg PO QHS tab 04/19/19 [History Last Taken Unknown] ibuprofen 200 mg PO DAILY 05/06/19 [History Last Taken Unknown] ibuprofen 400 mg PO QHS 05/06/19 [History Last Taken Unknown] Allergy/AdvReac Type Severity Reaction Status Date / Time bacitracin Allergy Severe unknown Verified 08/25/21 13:37 [From Neosporin Plus] indomethacin [From Indocin] Allergy Severe unknown Verified 08/25/21 13:37 lidocaine Allergy Severe unknown Verified 08/25/21 13:37 [From Neosporin Plus] neomycin Allergy Severe unknown Verified 08/25/21 13:37 [From Neosporin Plus] polymyxin B Allergy Severe unknown Verified 08/25/21 13:37 [From Neosporin Plus] pramoxine Allergy Severe unknown Verified 08/25/21 13:37 [From Neosporin Plus] prednisone Allergy Severe unknown Verified 08/25/21 13:37 tramadol [From Ultram] Allergy Severe unknown Verified 08/25/21 13:37 Family History Mother Asthma Kidney disease Thyroid disorder Father Heart disease Hypertension CAD (coronary artery disease) Sister Seizures Surgical History S/P laparoscopic cholecystectomy Status post removal of part of parathyroid Social History (Updated 05/26/19 @ 13:35 by Haily LEBLANC, PA-C) Smoking Status: Never smoker alcohol intake: never ROS ROS ED Constitutional Constitutional ED: Reports systems reviewed and no addt'l complaints, except as documented; Denies body ache(s), change in weight or chills Eyes Eyes: Denies acute decrease in peripheral vision, change in vision, double vision or loss of vision ENT ENT ED: Reports none; Denies ear pain, lip swelling, loss taste/smell, neck pain, otalgia or sore throat Cardiovascular Cardiovascular: Reports none and chest pain; Denies abdominal pain, chest pain with activity, leg edema, lightheadedness, palpitations, rapid heart rate or syncope Respiratory/Chest Respiratory/Chest: Reports none; Denies change in mental status, dry cough, dyspnea, hemoptysis, shortness of breath at rest or shortness of breath with exertion Gastrointestinal Gastrointestinal: Reports none; Denies abdominal pain, change in stool character, diarrhea, hematemesis, hematochezia, melena, rectal bleeding or vomiting Genitourinary Genitourinary ED: Reports none; Denies abdominal discomfort, anuria, dysuria, genital pain or polyuria Musculoskeletal Musculoskeletal: Reports none; Denies arthralgias, back pain, difficulty walking, extremity pain, muscle weakness or myalgias Integumentary Reports none; Denies abscess or rash Neurologic Neurologic: Reports none and headache(s); Denies abnormal gait, confusion, focal weakness, frequent falls, loss of vision, numbness, paresthesias, radicular pain, vertigo or weakness Psychiatric Psychiatric: Reports systems reviewed and no addt'l complaints, except as documented and none; Denies behavioral changes, confusion, difficulty concentrating, hallucinations, suicidal ideation, tactile hallucinations or visual hallucinations Endocrine Endocrinology: Denies none, cold intolerance, excessive sweating, fatigue or heat intolerance Hematologic/Lymphatic Hematologic/Lymphatic: Reports none; Denies anemia, easy bleeding or easy bruising Allergic/Immunologic Allergic/Immunologic ED: Denies as per HPI, none, lip swelling, mouth swelling, throat swelling, tongue swelling or hives EXAM Physical Exam Const Vital Signs: 08/25/21 13:34 08/25/21 13:58 08/25/21 15:38 Temperature 97.8 F Temperature Source Temporal Pulse Rate 120 H 94 84 Respiratory Rate 18 18 16 Blood Pressure 187/96 H 162/83 H 149/81 H Blood Pressure Mean 126 109 103 Pulse Ox 98 95 97 Oxygen Delivery Method Room Air Room Air Room Air Positive well nourished and well developed General Appearance ED: well developed and NAD HEENT Reports TM's clear and moist mucous membranes normocephalic and atraumatic; Negative for trauma or tenderness Tympanic Membrane ED: Yes TM's clear Eyes PERRL and EOMs intact bilaterally General Eye ED: Negative for pale conjunctiva or scleral icterus Neck no lymphadenopathy, supple and no JVD General: Negative for tenderness Chest Wall inspection of chest normal and palpation of chest normal Chest: Negative for tenderness Resp normal respiratory effort and clear to auscultation bilaterally Effort and Inspection: Negative for respiratory distress or pain with movement Auscultation: Negative for rhonchi, wheezes or diminished lung sounds Cardio regular rate, regular rhythm, S1 normal heart sound, S2 normal heart sound and no murmurs Peripheral Pulses: pulses 2+ throughout GI normal to inspection, nondistended, normoactive bowel sounds, soft to palpation, non-tender, non-distended and no masses Back/Spine no CVA tenderness and no thoracic nor lumbar tenderness Extremity normal to inspection General Extremety ED: Negative for edema General Extremity: Negative for edema Neuro oriented x3, CN's II-XII intact bilaterally, no sensory deficits noted and gait normal Sensorium / Orientation: awake, alert, oriented to person, oriented to place and oriented to time Motor Exam: strength 5/5 throughout and strength abnormal Psych mental status grossly normal Skin no rashes or lesions noted and no wounds MDM MDM MDM Narrative Medical decision making narrative: IV line established on arrival. Patient had labs that were unremarkable. EKG and troponin were essentially unremarkable. CT scan of the brain without contrast was unremarkable. At this point etiology of patient's burning pain to her the top of her head is unclear. She does state that it feels like it is in her scalp or just underneath the skin. It is possible she may have a peripheral neuropathy related to the trauma. Patient has not had any chest pain today and the discomfort she experienced yesterday lasted a few minutes and was atypical. She is wondering if it could be anxiety related. Patient tells me she had a stress test 3 or 4 years ago and was normal and she has no heart history otherwise. Given that her EKG is unchanged from prior and has a normal troponin and will feel she needs admitted. Patient advised return if worsening chest pain, increasing shortness of breath with exertion, or conditions worsen anyway. Patient otherwise to follow-up with her primary care physician 3 to 5 days. Lab Data Attestation: I reviewed the patient's lab results. Labs: Laboratory Results - last 24 hr 08/25/21 08/25/21 13:55 13:55 WBC 7.3 RBC 5.41 H Hgb 16.0 H Hct 46.7 MCV 86.3 MCH 29.6 MCHC 34.3 RDW Std Deviation 37.7 RDW Coeff of Dom 11.9 Plt Count 299 MPV 9.2 Immature Gran % (Auto) 0.300 Neut % (Auto) 76.1 H Lymph % (Auto) 16.6 L [place] % (Auto) 5.9 Eos % (Auto) 0.7 Baso % (Auto) 0.4 Absolute Neuts (auto) 5.6 Absolute Lymphs (auto) 1.22 Nucleated RBC % 0 Sodium 139 Potassium 3.8 Chloride 108 H Carbon Dioxide 25.0 Anion Gap 6 BUN 18 Creatinine 0.97 Estim Creat Clear Calc 44.00 Est GFR (MDRD) Af Amer 73 Est GFR (MDRD) Non-Af 60 BUN/Creatinine Ratio 18.6 Glucose 110 H Calcium 9.5 Troponin I High Sens 15 Radiography Diagnostic Testing: Clinical Impression(s) from Imaging Studies Brain CT 08/25/21 13:46 IMPRESSION: No evidence of acute intracranial bleed, mass or ischemia. Electronically Signed: Landon Vargas DO at 14:41 EDT , EKG Initial EKG: Attestation: I personally reviewed and interpreted this EKG as follows: Comments: Sinus rhythm with a ventricular rate of [address] changes Prior EKG tracings: available for review Prior: Unchanged Discharge Plan Triage Chief Complaint: General Illness ED Provider: Reba Collazo Dx/Rx/DC Orders Clinical Impression: Closed head injury, Chest pain Instructions: ED Chest Pain, Uncertain Cause, ED Head Injury (Adult) Prescriptions: No Action atorvastatin 10 mg tablet 10 mg PO QDAY RF: 0 multivitamin,to-qsvi-ukxtxbpo tablet tablet 1 tab PO QDAY RF: 0 amlodipine 2.5 mg tablet 10 mg PO QHS RF: 0 ibuprofen 200 MG capsule 200 mg PO DAILY RF: 0 ibuprofen 400 MG tablet 400 mg PO QHS RF: 0 Primary Care Provider: Jaciel Jaime Referrals: Jaciel Jaime MD [Primary Care Provider] - 3-5 Days Disposition Disposition: Home, Self Care
--- NOTE | 2021-08-25 13:47 | EKG12_ITS ---
Test Reason : GENERAL ILLNESS Blood Pressure : / mmHG Vent. Rate : 096 BPM Atrial Rate : 096 BPM P-R Int : 148 ms QRS Dur : 084 ms QT Int : 334 ms P-R-T Axes : 036 062 006 degrees QTc Int : 421 ms Normal sinus rhythm Nonspecific T wave abnormality Abnormal ECG Confirmed by ALEXIS STEWART, SANTOS ([id number]), editor index REGINALDO BARAJAS ([id number]) on 08/27/2021 9:29:08 AM Referred By: WILTON Confirmed By:SANTOS ESPINOZA MD
[2021-08-25 13:58] VITALS: BP 162/83; PULSE 94; RESP 18; O2SAT 95
[2021-08-25 14:04] LABS: Absolute Lymphocyte Count 1.22 X10^3/uL (0.83-4.51); Absolute Neutrophil Count 5.6 X10^3/uL (2.0-7.7); Basophil# 0.03 X10^3/uL; Basophil% 0.4 % (0-1); Eosinophil# 0.05 X10^3/uL; Eosinophils% 0.7 % (0-5); Hematocrit 46.7 % (37-47); Lymphocyte # 1.22 X10^3/ul (0.83-4.51); Lymphocyte % 16.6 % (19-41); Mean Corp Hgb Conc 34.3 g/dL (32-36); Mean Corpuscular Hgb 29.6 pg (27.0-32.0); Mean Corpuscular Volume 86.3 fL (81-99); Mean Platelet Vol. 9.2 fl (6.2-12.0); Monocyte# 0.43 X10^3/uL; Monocyte% 5.9 % (0-10); NRBC Flagged by Analyzer 0 % (0-5); Neutrophil # 5.58 X10^3/uL (2.7-7.7); Neutrophil % 76.1 % (47-70); Platelet Count 299 K/mm3 (150-450); RBC Distribution Width CV 11.9 % (11.6-14.6); RBC Distribution Width SD 37.7 fl (35.1-43.9); Red Blood Count 5.41 M/mm3 (4.2-5.4); White Blood Count 7.3 K/mm3 (4.4-11.0)
[2021-08-25] MEDS: 0.9% Normal Saline 1,000 ML 150 ML IV (14:23)
[2021-08-25 14:24] LABS: Anion Gap 6 (5-15); BUN 18 mg/dL (7-18); BUN/Creat Ratio 18.6 RATIO (10-20); Calcium,Total 9.5 mg/dL (8.5-10.1); Chloride 108 mmol/L (98-107); Creatinine, Serum 0.97 mg/dL (0.55-1.02); EST Glomerular Filtration Rate 60 mL/min (>60); Est Glom Filt Rate - Afr Amer 73 mL/min (>60); Glucose 110 mg/dL (74-106); Potassium 3.8 mmol/L (3.5-5.1); Sodium Level 139 mmol/L (136-145); Troponin-I HS 15 pg/mL (3.0-54.0)
[2021-08-25 15:38] VITALS: BP 149/81; PULSE 84; RESP 16; O2SAT 97
[2021-08-25 16:12] VITALS: BP 149/81; PULSE 84; RESP 16; O2SAT 95
== END 2021-08-25 16:13 | disposition home or self-care (01) ==
PROVIDERS: Emergency Provider Emergency Medicine; PCP Family Medicine; Visit Provider Emergency Medicine
DX: S09.90XA Unspecified injury of head, initial encounter (principal); R07.9 Chest pain, unspecified; W00.0XXA Fall on same level due to ice and snow, initial encounter
CPT/HCPCS: 70450; 80048; 84484; 85025; 93005; 99282; A4216

== ENCOUNTER → 2021-10-31 | Outpatient (CLI) | payer BC, SELFPAY ==
[2021-10-31 12:38] LABS: ALB/GLOB Ratio 1.1 RATIO (0.9-2.4); AST(SGOT) 16 U/L (15-37); Alanine Aminotransfer ALT/SGPT 28 U/L (13-56); Albumin, Serum 3.9 g/dL (3.2-5.0); Alkaline Phosphatase 100 U/L (45-117); Anion Gap 6 (5-15); BUN 18 mg/dL (7-18); BUN/Creat Ratio 20.8 RATIO (10-20); Calcium,Total 9.4 mg/dL (8.5-10.1); Chloride 105 mmol/L (98-107); Creatinine, Serum 0.87 mg/dL (0.55-1.02); EST Glomerular Filtration Rate 68 mL/min (>60); Est Glom Filt Rate - Afr Amer 83 mL/min (>60); Globulin 3.7 g/dL (2.2-4.2); Glucose 102 mg/dL (74-106); Potassium 4.3 mmol/L (3.5-5.1); Protein, Total 7.6 g/dL (6.4-8.2); Sodium Level 140 mmol/L (136-145)
== END | disposition home or self-care (01) ==
LOC: MFPLAB 10:30
PROVIDERS: PCP Family Medicine; Referring Provider Family Medicine; Visit Provider Nurse Practitioner Family
DX: I10 Essential (primary) hypertension (principal)
CPT/HCPCS: 36415; 80053

== ENCOUNTER → 2022-01-06 | Outpatient (CLI) | payer BC, SELFPAY | END | disposition home or self-care (01) | LOC: LABSPEC 12:14 | PROVIDERS: PCP Family Medicine; Referring Provider Family Medicine; Visit Provider Family Medicine | DX: U07.1 COVID-19 (principal) | CPT/HCPCS: 87635; U0003; U0005 ==

== ENCOUNTER → 2022-06-12 | Outpatient (CLI) | payer BC, SELFPAY ==
--- NOTE | 2022-06-12 09:48 | BI_ITS ---
MAMMOGRAPHY - BILATERAL SCREENING REASON FOR EXAM: Female, 71 years old. Routine annual screening examination. PERTINENT HISTORY: Non-contributory. TECHNIQUE: Digital bilateral breast leon (3D mammographic acquisition) in the CC and MLO projections. 2-D mediolateral oblique (MLO) and craniocaudad (CC) views of both breasts were obtained. CAD: Full Field Digital Mammography with Computer Added Detection was performed. COMPARISON: 06/10/2021, 06/07/2020. FINDINGS: Breast Composition: There are scattered areas of fibroglandular density. There are no dominant masses or suspicious calcifications. No other significant abnormalities are identified. There has been no significant change since the prior study. BI/SCRN MAMM (CAD)W/LEON BILAT IMPRESSION: Stable bilateral screening mammogram. Yearly follow-up mammogram recommended. (A) ASSESSMENT CATEGORY: BIRADS Category 1: Negative. A letter regarding these results will be sent to the patient by the facility within 30 days. Approximately 10% of breast cancers are not detected by mammography. A normal mammogram should not delay biopsy of a clinically suspicious abnormality. Electronically Signed: Meng Herrera, at 17:09 EST ,
== END | disposition home or self-care (01) ==
LOC: OPBI 09:45
PROVIDERS: PCP Family Medicine; Visit Provider Nurse Practitioner Family
DX: Z12.31 Encounter for screening mammogram for malignant neoplasm of breast (principal)
CPT/HCPCS: 77063; 77067

== ENCOUNTER → 2022-08-05 | Outpatient (CLI) | payer BC, SELFPAY ==
[2022-08-05 15:11] LABS: Absolute Lymphocyte Count 1.44 X10^3/uL (0.83-4.51); Absolute Neutrophil Count 3.4 X10^3/uL (2.0-7.7); Basophil# 0.04 X10^3/uL; Basophil% 0.7 % (0-1); Eosinophil# 0.07 X10^3/uL; Eosinophils% 1.3 % (0-5); Hematocrit 45.4 % (37-47); Hemoglobin 14.9 g/dL (12.0-15.0); Lymphocyte # 1.44 X10^3/ul (0.83-4.51); Lymphocyte % 26.8 % (19-41); Mean Corp Hgb Conc 32.8 g/dL (32-36); Mean Corpuscular Hgb 29.2 pg (27.0-32.0); Mean Platelet Vol. 9.9 fl (6.2-12.0); Monocyte# 0.41 X10^3/uL; Monocyte% 7.6 % (0-10); NRBC Flagged by Analyzer 0 % (0-5); Neutrophil % 63.4 % (47-70); Platelet Count 278 K/mm3 (150-450); RBC Distribution Width CV 11.9 % (11.6-14.6); RBC Distribution Width SD 38.5 fl (35.1-43.9); White Blood Count 5.4 K/mm3 (4.4-11.0)
[2022-08-05 15:36] LABS: AST(SGOT) 14 U/L (15-37); Alanine Aminotransfer ALT/SGPT 23 U/L (13-56); Albumin, Serum 3.9 g/dL (3.2-5.0); Alkaline Phosphatase 99 U/L (45-117); Anion Gap 7 (5-15); BUN 22 mg/dL (7-18); BUN/Creat Ratio 26.9 RATIO (10-20); Calcium,Total 9.6 mg/dL (8.5-10.1); Chloride 106 mmol/L (98-107); Creatinine, Serum 0.82 mg/dL (0.55-1.02); EST Glomerular Filtration Rate 73 mL/min (>60); Est Glom Filt Rate - Afr Amer 88 mL/min (>60); Globulin 3.8 g/dL (2.2-4.2); Glucose 94 mg/dL (74-106); Potassium 4.3 mmol/L (3.5-5.1); Protein, Total 7.7 g/dL (6.4-8.2); Sodium Level 140 mmol/L (136-145)
[2022-08-05 15:46] LABS: Microalbumin,Random Urine 25.9 mg/L (NO RANGE EST.); Microalbumin:Creatinine Ratio 17.5 mg/g CRE (<30 mg/g CRE)
[2022-08-07 23:00] LABS: H. Pylori Antibody (IgG) 0.17 (0.00-0.79)
== END | disposition home or self-care (01) ==
LOC: MFPLAB 12:05
PROVIDERS: PCP Family Medicine; Referring Provider Family Medicine; Visit Provider Family Medicine
DX: K21.9 Gastro-esophageal reflux disease without esophagitis (principal); C84.A0 Cutaneous T-cell lymphoma, unspecified, unspecified site; I10 Essential (primary) hypertension
CPT/HCPCS: 36415; 80053; 82043; 82570; 85025; 86677

== ENCOUNTER → 2022-09-16 | Outpatient (CLI) | payer BC, SELFPAY ==
--- NOTE | 2022-09-16 08:17 | RAD_ITS ---
STUDY: X-RAY - ESOPHAGUS (BARIUM SWALLOW) WITH FLUOROSCOPY REASON FOR EXAM: Female, 71 years old. GERD. The proximal dysphagia. TECHNIQUE: 14 view(s) of the esophagus were obtained following swallowing of barium. FLUOROSCOPY TIME (if supplied): (31 seconds) minutes/seconds. 19.69 mGy COMPARISON: None. FINDINGS: There is no demonstrated esophageal foreign body. There is no demonstrated stricture or mucosal abnormality. There is a small hiatal hernia of the fundus of the stomach. The patient ingested a 12 mm tablet of barium without any difficulty. There is atherosclerotic tortuosity of the aortic arch and descending thoracic aorta. Normal visualized pulmonary parenchyma. There are diffuse degenerative changes of the visualized thoracic spine. RAD/Esophagus Dual Contrast IMPRESSION: Small hiatal hernia without gastroesophageal reflux. Electronically Signed: Denis Caldwell MD at 8:46 EDT ,
== END | disposition home or self-care (01) ==
LOC: RAD 08:11
PROVIDERS: PCP Family Medicine; Referring Provider Family Medicine; Visit Provider Family Medicine
DX: K21.9 Gastro-esophageal reflux disease without esophagitis (principal)
CPT/HCPCS: 74221

== ENCOUNTER → 2023-02-24 | Outpatient (CLI) | payer BC, SELFPAY ==
[2023-02-24 18:25] LABS: Microalbumin,Random Urine 11.3 mg/L (NO RANGE EST.); Microalbumin:Creatinine Ratio 15.6 mg/g CRE (<30 mg/g CRE)
[2023-02-24 18:27] LABS: AST(SGOT) 15 U/L (15-37); Alanine Aminotransfer ALT/SGPT 30 U/L (13-56); Albumin, Serum 3.8 g/dL (3.2-5.0); Alkaline Phosphatase 110 U/L (45-117); Anion Gap 4 (5-15); BUN 19 mg/dL (7-18); BUN/Creat Ratio 23.8 RATIO (10-20); Calcium,Total 9.1 mg/dL (8.5-10.1); Chloride 108 mmol/L (98-107); EST Glomerular Filtration Rate 75 mL/min (>60); Est Glom Filt Rate - Afr Amer 91 mL/min (>60); Globulin 3.8 g/dL (2.2-4.2); Glucose 94 mg/dL (74-106); Potassium 4.1 mmol/L (3.5-5.1); Protein, Total 7.6 g/dL (6.4-8.2); Sodium Level 140 mmol/L (136-145)
== END | disposition home or self-care (01) ==
LOC: MFPLAB 16:58
PROVIDERS: PCP Family Medicine; Visit Provider Family Medicine
DX: I10 Essential (primary) hypertension (principal)
CPT/HCPCS: 36415; 80053; 82043; 82570

== ENCOUNTER 2024-02-18 15:00 | Outpatient (RCR) | payer MEDICARE, OTHER, SELFPAY ==
--- NOTE | 2024-02-05 10:45 | HP.PTEVAL_ITS ---
Patient's Visit Information Visit Information Visit Information: FROYLAN SELF is a 73 year old F referred to Physical Therapy by Dr. Jaciel Jaime MD with a diagnosis of BPPV. Date of Evaluation: 02/05/24 Physical Therapist: Jaciel Adames, DPT, OCS, CSCS Visit Plan Frequency: 1-2x /Week Duration: 2-4 Weeks Plan: 1-2x/week as needed around [place] vacation(if she goes) to treat with positional and reintegration exercises. check L positional next session Subjective Subjective: Got dizzy 01/25 10 days ago waking up spinning. Did so whenever she moved head. Got up and moved slowly but did not move much that day. Two days did not get better and saw doctor 3 days later and had will maneuver. [place] Ok for a few hours. next day was dizzy again but not as bad. Current symptoms are worse lying down. Also orse if turns R side but also rolling to left. Improving. Intermittent goofy feeling and spinning if lies down or sits up. Spinning lasts 30 seconds. Balance feels Ok if not spinning, no falls. Sleep is Ok. Not employed. Hobbies: Spends time watching tv and reading, fiddles around house but is slower now. Objective Objective: Walks slowly but I without AD into PT. hesitant to move head , trasnfers I, steps with rail reciprocally I. cervical aROM is 50 ext and 50 rotation in sitting but hesitant when on feet, no pain. UE AROM WFL , sensation WFL to gross light touch. strength 4-/5 - R HD + L HD for up torsional nystagmus treated with will and then still + L for slight torsional, more ageotropic fatiguing nystagmus after 10 seconds, treated wwith L will again. Balance/Special Test Scores Functional Gait Assessment Score: 24 % Disability: 20.0000 Dizziness Score: 62 Goals Goal 1:: FGA Goal 2:: dizzyness abolished and able to lie and roll without symptoms Goal Time Frame: 4-6 Weeks Goal 3:: 12 or less DHI Goal Time Frame: 2-4 Weeks Rehabilitation Potential Physical Therapy Diagnosis: dizzyness with position changes limtiing funciton and safety. Rehabilitation Potential: Good Anticipated Interventions Patient/Client Instruction: Educate patient on: Condition and Plan of Care For the Purpose of:: To increase tolerance to activity/condition/position Therapeutic Exercise to Include: Balance training Comment: positional treatments For the Purpose of:: To increase tolerance to activity/condition/position Text: Thank you for the opportunity to evaluate your patient. For Medicare and Medicare HMO plans, please review the plan of care and approve it. It will need to be FAXED BACK to us at [phone] for Medicare purposes. For Medicare only, by signing this I certify the plan of care. Please let me know if there are questions or concerns regarding this plan of care. Physician Signature: Date:
--- NOTE | 2024-02-18 15:25 | HP.PTREVAL ---
Re-Evaluation Intro: Dr. Jaciel Jaime MD, It has been my pleasure to treat FROYLAN SELF over the last 4 visits for BPPV. Please see the progress note below for an update on the physical therapy plan of care! Subjective Subjective: Thursday did ex and got dizzy. Thursday was OK, Thursday not bad, Thursday was dizzy again off an on. Thursday was not bad until she drove. [place] not bad, Ok means if moving feels goofy in head but Ok if still. No spinning since last Thursday. Every other day seems worse. Does ex daily and makes her bad every other day but no spinning since Thursday. Objective Objective/Function: geot ropic nystagmus with most movements. Not progressing very quickly but still much better, being stubborn with positional treatments but still appears to be BPPV. Plan Plan Plan: f/u one week. to doctor next week and other options should be considered despite obvious + BPPV tests. Balance/Gait/Functional tests Balance/Special Test Scores Functional Gait Assessment Score: 28 % Disability: 6.6700 Dizziness Score: 62 Goals Goals Goal 1:: FGA Goal Progress: Goal Met Goal 2:: dizzyness abolished and able to lie and roll without symptoms Goal Time Frame: 4-6 Weeks Goal 3:: 12 or less DHI Goal Time Frame: 2-4 Weeks Anticipated Interventions Anticipated Interventions Patient/Client Instruction: Educate patient on: Condition and Plan of Care For the Purpose of:: To increase tolerance to activity/condition/position Therapeutic Exercise to Include: Balance training Comment: positional treatments For the Purpose of:: To increase tolerance to activity/condition/position Re-Evaluation Ending Re-evaluation ending: Please do not hesitate to contact me at [phone] by phone or if you have questions or concerns regarding this new plan of care! Sincerely, Jaciel Adames, DPT, OCS, CSCS
--- NOTE | 2024-02-18 15:28 | HP.PTREVAL ---
Re-Evaluation Intro: Dr. Jaciel Jaiem MD, It has been my pleasure to treat FROYLAN SELF over the last 4 visits for BPPV. Please see the progress note below for an update on the physical therapy plan of care! Subjective Subjective: Thursday did ex and got dizzy. Thursday was OK, Thursday not bad, Thursday was dizzy again off an on. Thursday was not bad until she drove. [place] not bad, Ok means if moving feels goofy in head but Ok if still. No spinning since last Thursday. Every other day seems worse. Does ex daily and makes her bad every other day but no spinning since Thursday. Objective Objective/Function: geot ropic nystagmus with most movements. Not progressing very quickly but still much better, being stubborn with positional treatments but still appears to be BPPV. Plan Plan Plan: f/u one week. to doctor next week and other options should be considered despite obvious + BPPV tests. Balance/Gait/Functional tests Balance/Special Test Scores Functional Gait Assessment Score: 28 % Disability: 6.6700 Dizziness Score: 62 Goals Goals Goal 1:: FGA Goal Progress: Goal Met Goal 2:: dizzyness abolished and able to lie and roll without symptoms Goal Time Frame: 4-6 Weeks Goal 3:: 12 or less DHI Goal Time Frame: 2-4 Weeks Anticipated Interventions Anticipated Interventions Patient/Client Instruction: Educate patient on: Condition and Plan of Care For the Purpose of:: To increase tolerance to activity/condition/position Therapeutic Exercise to Include: Balance training Comment: positional treatments For the Purpose of:: To increase tolerance to activity/condition/position Re-Evaluation Ending Re-evaluation ending: Please do not hesitate to contact me at [phone] by phone or if you have questions or concerns regarding this new plan of care! Sincerely, Jaciel Adames, DPT, OCS, CSCS
--- NOTE | 2024-04-19 15:42 | HP.PTDCNRP_ITS ---
Patient Information Patient Information: FROYLAN SELF was seen in my office for initial evaluation on 02/05/24. The following Plan of Care was established for this patient: POC Established Initial Frequency: 1-2x /Week Initial Duration: 2-4 Weeks Anticipated Interventions Patient/Client Instruction: Educate patient on: Condition and Plan of Care For the Purpose of:: To increase tolerance to activity/condition/position Therapeutic Exercise to Include: Balance training For the Purpose of:: To increase tolerance to activity/condition/position Last Seen Last Seen: This patient was last seen in our office 02/18/24. Pertinent comments regarding their Physical therapy will appear below: Pt seen 4 visits of POC and was 80% better. she called to cancel remaining visits at doctor request stating she would call by 03/26 if he wanted her to ret urn. That has come and gone and I will discontinue from my care. At this point I will be discontinuing this patient from physical therapy. I would be happy to see this patient again in the future if found appropriate by the physician. Thank you! Jaciel Adames, DPT, OCS, CSCS Balance/Gait/Functional tests Balance/Special Test Scores Functional Gait Assessment Score: 28 % Disability: 6.6700 Dizziness Score: 62
== END 2024-02-18 19:00 | disposition home or self-care (01) ==
LOC: PT 15:00
PROVIDERS: PCP Family Medicine; Referring Provider Family Medicine; Visit Provider Family Medicine
DX: H81.11 Benign paroxysmal vertigo, right ear (principal)
CPT/HCPCS: 97161; 97530

== ENCOUNTER → 2024-03-09 | Outpatient (CLI) | payer MEDICARE, OTHER, SELFPAY ==
[2024-03-09 12:20] LABS: Absolute Lymphocyte Count 1.45 X10^3/uL (0.83-4.51); Absolute Neutrophil Count 3.7 X10^3/uL (2.0-7.7); Basophil# 0.04 X10^3/uL; Basophil% 0.7 % (0-1); Eosinophil# 0.06 X10^3/uL; Eosinophils% 1.1 % (0-5); Hematocrit 46.5 % (37-47); Hemoglobin 15.1 g/dL (12.0-15.0); Lymphocyte # 1.45 X10^3/ul (0.83-4.51); Lymphocyte % 25.5 % (19-41); Mean Corp Hgb Conc 32.5 g/dL (32-36); Mean Corpuscular Hgb 28.7 pg (27.0-32.0); Mean Corpuscular Volume 88.2 fL (81-99); Mean Platelet Vol. 9.8 fl (6.2-12.0); Monocyte# 0.43 X10^3/uL; Monocyte% 7.6 % (0-10); NRBC Flagged by Analyzer 0 % (0-5); Neutrophil # 3.68 X10^3/uL (2.7-7.7); Neutrophil % 64.7 % (47-70); Platelet Count 276 K/mm3 (150-450); RBC Distribution Width SD 38.8 fl (35.1-43.9); Red Blood Count 5.27 M/mm3 (4.2-5.4); White Blood Count 5.7 K/mm3 (4.4-11.0)
[2024-03-09 12:57] LABS: AST(SGOT) 12 U/L (15-37); Alanine Aminotransfer ALT/SGPT 20 U/L (13-56); Albumin, Serum 3.8 g/dL (3.2-5.0); Alkaline Phosphatase 99 U/L (45-117); Anion Gap 7 (5-15); BUN 15 mg/dL (7-18); BUN/Creat Ratio 15.4 RATIO (10-20); Calcium,Total 9.5 mg/dL (8.5-10.1); Chloride 107 mmol/L (98-107); Cholesterol 157 mg/dL (200); Creatinine, Serum 0.98 mg/dL (0.55-1.02); EST Glomerular Filtration Rate 59 mL/min (>60); Est Glom Filt Rate - Afr Amer 72 mL/min (>60); Globulin 3.7 g/dL (2.2-4.2); Glucose 113 mg/dL (74-106); High Density Lipoprotein 55 mg/dL; Potassium 3.7 mmol/L (3.5-5.1); Protein, Total 7.5 g/dL (6.4-8.2); Sodium Level 139 mmol/L (136-145); Triglycerides 175 mg/dL; Very Low Density Lipoprotein 35 mg/dL (5-40)
== END | disposition home or self-care (01) ==
LOC: MFPLAB 09:56
PROVIDERS: PCP Family Medicine; Visit Provider Family Medicine
DX: I10 Essential (primary) hypertension (principal); C84.A0 Cutaneous T-cell lymphoma, unspecified, unspecified site; E78.00 Pure hypercholesterolemia, unspecified
CPT/HCPCS: 36415; 80053; 80061; 85025

== ENCOUNTER → 2024-03-16 | Outpatient (CLI) | payer MEDICARE, OTHER, SELFPAY ==
--- NOTE | 2024-03-16 14:42 | CT_ITS ---
HISTORY: persistent vertigo - concern for mass or inflammation. TECHNIQUE: Multiple axial images were obtained of the head before and after the intravenous administration of 15 mL Isovue-370. A radiation dose optimization technique was used for this scan. 291 images. COMPARISON: 08/25/2021. FINDINGS: BRAIN PARENCHYMA: Multiple foci and zones of low attenuation in the bilateral cerebral white matter compatible with chronic small vessel ischemic gliosis. No enhancing lesion in the brain parenchyma. No acute intra-axial hemorrhage identified. CSF SPACES: Generalized volume loss. No midline shift or other significant mass effect. No acute extra-axial hemorrhage seen. OTHER: Intact calvarium. Left maxillary sinus mucous retention cyst. Mild sphenoid sinus mucosal thickening. Unremarkable orbits. CT/Brain/Head W/WO Contrast IMPRESSION: No acute intracranial process or enhancing intracranial mass identified. Mild chronic involutional and white matter changes. Electronically Signed: Emily Stock MD at 15:57 EDT ,
== END | disposition home or self-care (01) ==
LOC: CT 14:41
PROVIDERS: PCP Family Medicine; Referring Provider Family Medicine; Visit Provider Family Medicine
DX: R42 Dizziness and giddiness (principal)
CPT/HCPCS: 70470; Q9967

== ENCOUNTER → 2024-06-22 | Outpatient (CLI) | payer MEDICARE, OTHER, SELFPAY ==
--- NOTE | 2024-06-22 13:08 | BI_ITS ---
MAMMOGRAPHY - BILATERAL SCREENING REASON FOR EXAM: Female, 73 years old. Routine annual screening examination. PERTINENT HISTORY: Non-contributory. TECHNIQUE: Digital bilateral breast leon (3D mammographic acquisition) in the CC and MLO projections. 2-D mediolateral oblique (MLO) and craniocaudad (CC) views of both breasts were obtained. CAD: Full Field Digital Mammography with Computer Added Detection was performed. COMPARISON: Comparison is made with prior study dated June 12, 2022 and June 10, 2021 FINDINGS: Breast Composition: There are scattered areas of fibroglandular density. There are no dominant masses or suspicious calcifications. No other significant abnormalities are identified. There has been no significant change since the prior study. BI/SCRN MAMM (CAD)W/LEON BILAT IMPRESSION: Stable bilateral screening mammogram. Yearly follow-up mammogram recommended. (A) ASSESSMENT CATEGORY: BIRADS Category 1: Negative. A letter regarding these results will be sent to the patient by the facility within 30 days. Approximately 10% of breast cancers are not detected by mammography. A normal mammogram should not delay biopsy of a clinically suspicious abnormality. [id number] Electronically Signed: Denis Caldwell MD at 14:18 EST ,
--- NOTE | 2024-06-22 13:11 | BD_ITS ---
STUDY: DUAL ENERGY X-RAY ABSORPTIOMETRY / DXA REASON FOR EXAM: Female, 73 years old. 627.8Menopausal postmenopausal BONE DENSITY REASON FOR EXAM TECHNIQUE: Bone Mineral Density (BMD) measurements of lumbar spine and bilateral hips were obtained. COMPARISON: Comparison is made with prior study June 07, 2020. FINDINGS: Lumbar Spine (L1-L4): g/cm2 (0.772) / T-score (-3.0) / Z-score (-0.5) Findings are suggestive of osteoporosis with a high fracture risk. Left Femur Total: g/cm2 (0.843) / T-score (-0.8) / Z-score (1.0) Left Femoral Neck: g/cm2 (0.652) / T-score (-1.8) / Z-score (0.3) Right Femur Total: g/cm2 (0.818) / T-score (-1.0) / Z-score (0.7) Right Femoral Neck: g/cm2 (0.622) / T-score (-2.0) / Z-score (0.0) The T-Scores on the most recent prior examination were: Lumbar Spine (L1-L4): There has been worsening of bone density since the previous examination. Left Femur Total: which represents a worsening of 1.7%. Right Femur Total: which represents no significant change. . BD/Dexa Bone Density Study IMPRESSION: The patient is considered osteoporotic as outlined below according to World Oscar Organization (WHO) criteria with a high fracture risk. There has been worsening of bone density since the previous examination. Reference Information: The T-score is the number of standard deviations above or below the standard which is normal for young adults at their peak bone mineral density. The World Health Organization (WHO) interprets the T-scores as follows: Above -1 Normal bone density Between -1 and -2.5 Osteopenia Equal to / or below -2.5 Osteoporosis As a practical clinical guideline, osteopenia may be graded as follows: Mild -1 through -1.5 Moderate -1.6 through -2.0 Severe -2.1 through -2.4 The Z-score is the number of standard deviations above or below age-matched controls. A Z-score of less than -1.5 would be considered abnormal. References: 1. NIH Osteoporosis and Related Bone Diseases www osteo.org 2. International Society for Clinical Densitometry www iscd.org 3. National Osteoporosis Foundation www nof.org Electronically Signed: Denis Caldwell MD at 13:38 EST ,
== END | disposition home or self-care (01) ==
LOC: OPBD 13:06
PROVIDERS: PCP Family Medicine; Referring Provider Family Medicine; Visit Provider Family Medicine
DX: Z12.31 Encounter for screening mammogram for malignant neoplasm of breast (principal); Z78.0 Asymptomatic menopausal state; M85.80 Other specified disorders of bone density and structure, unspecified site
CPT/HCPCS: 77063; 77067; 77080

== ENCOUNTER → 2024-08-12 | Outpatient (CLI) | payer MEDICARE, OTHER, SELFPAY ==
[2024-08-12 17:48] LABS: Absolute Lymphocyte Count 1.65 X10^3/uL (0.83-4.51); Absolute Neutrophil Count 4.4 X10^3/uL (2.0-7.7); Basophil# 0.05 X10^3/uL; Basophil% 0.7 % (0-1); Eosinophil# 0.06 X10^3/uL; Eosinophils% 0.9 % (0-5); Hematocrit 45.5 % (37-47); Hemoglobin 15.2 g/dL (12.0-15.0); Lymphocyte # 1.65 X10^3/ul (0.83-4.51); Lymphocyte % 24.7 % (19-41); Mean Corp Hgb Conc 33.4 g/dL (32-36); Mean Corpuscular Hgb 29.6 pg (27.0-32.0); Mean Corpuscular Volume 88.7 fL (81-99); Mean Platelet Vol. 10.1 fl (6.2-12.0); Monocyte# 0.54 X10^3/uL; Monocyte% 8.1 % (0-10); NRBC Flagged by Analyzer 0 % (0-5); Neutrophil # 4.36 X10^3/uL (2.7-7.7); Neutrophil % 65.3 % (47-70); Platelet Count 313 K/mm3 (150-450); RBC Distribution Width CV 12.2 % (11.6-14.6); RBC Distribution Width SD 39.6 fl (35.1-43.9); Red Blood Count 5.13 M/mm3 (4.2-5.4); White Blood Count 6.7 K/mm3 (4.4-11.0)
[2024-08-12 20:03] LABS: ALB/GLOB Ratio 1.3 RATIO (0.9-2.4); AST(SGOT) 19 U/L (<=31); Alanine Aminotransfer ALT/SGPT 17 U/L (<=34); Albumin, Serum 4.4 g/dL (3.4-4.8); Alkaline Phosphatase 100 U/L (35-104); Anion Gap 14 (5-15); BUN 19 mg/dL (4-19); BUN/Creat Ratio 20.6 RATIO (10-20); Calcium 9.9 mg/dL (7.6-11.0); Carbon Dioxide 23.6 mmol/L (22.0-29.0); Chloride 102 mmol/L (96-108); Creatinine, Serum 0.92 mg/dL (0.70-1.20); EST Glomerular Filtration Rate 65 (>60); Globulin 3.3 g/dL (2.2-4.2); Glucose 88 mg/dL (70-99); Protein, Total 7.7 g/dL (5.9-8.4); Sodium Level 140 mmol/L (133-145); Total Bilirubin 0.44 mg/dL (0.00-1.30); Vitamin D,25 Hydroxy 48.6 ng/mL (30-100)
[2024-08-12 20:46] LABS: PTHIN 52 pg/mL (11-61)
== END | disposition home or self-care (01) ==
LOC: MTLAB 14:31
PROVIDERS: PCP Family Medicine; Referring Provider Family Medicine; Visit Provider Family Medicine
DX: M81.0 Age-related osteoporosis without current pathological fracture (principal); M54.50 Low back pain, unspecified
CPT/HCPCS: 36415; 80053; 82306; 83970; 85025

== ENCOUNTER 2024-09-15 13:00 | Outpatient (RCR) | payer MEDICARE, OTHER, SELFPAY ==
--- NOTE | 2024-08-22 10:54 | HP.PTEVAL_ITS ---
Patient's Visit Information Visit Information Visit Information: FROYLAN SELF is a 73 year old F referred to Physical Therapy by Dr. Jaciel Jaime MD with a diagnosis of falls, unsteady gait, lumbar strain and B shoulder pain. Date of Evaluation: 08/22/24 Physical Therapist: Demarcus Salomon DPT Visit Plan Frequency: 2-3x /Week Duration: 6 Weeks Plan: 1) balance training on multiple surfaces and with narrow ERASTO 2) core, B hip and B shoulder strengthening 3) add in postural strengthening as able. 4) cervical/thoracic and B shoulder ROM. Pt. has new onset of osteoporosis. Add in CKC and resistance training to aid in this as well. Subjective Subjective: Pt. is here today for her initial evaluation with diagnosis of history of falls, unsteady gait, lumbar strain and B shoulder pain. Pt. was recently diagnosed with osteoporosis as well. Pt. having a few falls. She has not fallen recently, but with new onset of osteoporosis patient is a little bi8t more fearful of falling and breaking something. She also reports not wanting to take any medications either. Pt. also has some T-spine pain that effects her with looking up and with walking. Pt. is hopeful to reduce symptoms in order to get back to all recreational activities without limitations. Objective Objective: POSTURE: Pt has a general flexed posture. Pt. has no major wt. shift to either side. Normal iliac crest heights. Pt. has general flexed posture. PALPATION: pt. has tenderness throughout erector spinae of CT junction. NEURO: Pt. has normal sensation throughout BLEs nd BUEs. Normal DTR noted. ROM: LUMBAR SPINE: flexion min loss, ext mod loss, SB min loss bilat, rotation min loss bilat. Thoracic spine: ext mod loss, flexion nil loss. B shoulder: min loss mild increase, ext normal, functional ER C2 tightness noted, functional IR L5 tightness noted. MMT: Core strength: poor. B shoulder strength: 4/5 throughout. BLE strength: distal 4/5, B hips 4/5. GAIT: Pt. ambulates with out SPC with testing today. Pt. has decreased step length and is a bit hesitant with gait. More so with directional changes. STAIRS: step to pattern with use of BHR to complete both for ascending and descending. Balance/Special Test Scores Functional Gait Assessment Score: 15 % Disability: 50.0000 Oswestry Low Back Score: 28 Lower Extremity Functional Score: 29 TUG Test Time Seconds: 21.3 30 Second Chair Rise Test Seconds: 5 Goals Goal 1:: LTG: Pt. to be I with HEP for BLE and BUE strengthening as well as balance activities Goal Time Frame: 4-6 Weeks Goal 2:: LTG: Pt. to have increased BLE, BUE and core strength increased to at least 4+/5 throughout. Goal Time Frame: 4-6 Weeks Goal 3:: LTG: Pt. to complete TUG with time less than 10second indicating increased functional mobility. Goal Time Frame: 4-6 Weeks Goal 4:: LTG: Pt to have increased FGA to greater than 23/30 indicating reduced risk for future falls. Goal Time Frame: 4-6 Weeks Goal 5:: LTG: Pt. to have increased B shoulder and lumbar ROM to less than min loss in all directions. Goal Time Frame: 4-6 Weeks Rehabilitation Potential Physical Therapy Diagnosis: Pt. has signs and symptoms consistent with falls, unsteady gait, lumbar strain and B shoulder pain. Pt. has marked hypomobility globally and marked weakness globally. Pt. would benefit from PT to work global strength and ROM, progressing her balance as well. Rehabilitation Potential: Excellent Anticipated Interventions Patient/Client Instruction: Educate patient on: Condition, Plan of Care, Risk Factors and Benefits of Fitness Program For the Purpose of:: To improve decision making, To facilitate caregiver knowledge, To improve self management, To prevent re-injury, To improve ability to perform tasks related to life management and To improve tolerance to ADL's Therapeutic Exercise to Include: Strength training, Power training, Endurance training, Balance training, Body mechanics, Flexibilty training, Gait and locomotor training, Passive ROM, Active ROM and Dynamic Lumbar Stabilization For the Purpose of:: To decrease pain, To increase ROM, To improve nutrient de livery to tissue, To increase oxygenation perfusion, To improve muscle performance and motor function, To improve ability to perform ADL's, To increase tolerance to activity/condition/position, To improve gait and locomotor functions, To improve health of tissue, To decrease soft tissue restriction, To increase flexibility/ROM, To improve endurance and To improve balance Text: Thank you for the opportunity to evaluate your patient. For Medicare and Medicare HMO plans, please review the plan of care and approve it. It will need to be FAXED BACK to us at [phone] for Medicare purposes. For Medicare only, by signing this I certify the plan of care. Please let me know if there are questions or concerns regarding this plan of care. Physician Signature: Date:
== END 2024-09-15 19:00 | disposition home or self-care (01) ==
LOC: PT 13:00
PROVIDERS: PCP Family Medicine; Referring Provider Family Medicine; Visit Provider Family Medicine
DX: R26.89 Other abnormalities of gait and mobility (principal); S39.012D Strain of muscle, fascia and tendon of lower back, subsequent encounter; M81.0 Age-related osteoporosis without current pathological fracture; M25.519 Pain in unspecified shoulder; Z91.81 History of falling
CPT/HCPCS: 97110; 97162; 97530

== ENCOUNTER → 2025-01-27 | Outpatient (CLI) | payer MEDICARE, OTHER, SELFPAY ==
[2025-01-27 17:41] LABS: Hematocrit 44.4 % (37-47); Hemoglobin 15.0 g/dL (12.0-15.0); Immature Granulocytes Count 0.030 X10^3/uL (0.0-0.0); Mean Corp Hgb Conc 33.8 g/dL (32-36); Mean Corpuscular Volume 87.7 fL (81-99); Mean Platelet Vol. 10.2 fl (6.2-12.0); NRBC Flagged by Analyzer 0 % (0-5); Platelet Count 282 K/mm3 (150-450); RBC Distribution Width CV 12.2 % (11.6-14.6); RBC Distribution Width SD 39.2 fl (35.1-43.9); Red Blood Count 5.06 M/mm3 (4.2-5.4); White Blood Count 6.3 K/mm3 (4.4-11.0)
[2025-01-27 18:00] LABS: AST(SGOT) 17 U/L (<=31); Alanine Aminotransfer ALT/SGPT 17 U/L (<=34); Albumin, Serum 4.2 g/dL (3.4-4.8); Alkaline Phosphatase 103 U/L (35-104); Anion Gap 14 (5-15); BUN 15 mg/dL (4-19); BUN/Creat Ratio 16.4 RATIO (10-20); Calcium,Total 9.6 mg/dL (7.6-11.0); Carbon Dioxide 22.6 mmol/L (21.0-32.0); Chloride 104 mmol/L (98-108); Globulin 2.9 g/dL (2.2-4.2); Glucose 94 mg/dL (70-99); Potassium 4.0 mmol/L (3.3-5.1)
== END | disposition home or self-care (01) ==
LOC: MFPLAB 15:33
PROVIDERS: PCP Family Medicine; Visit Provider Family Medicine
DX: I10 Essential (primary) hypertension (principal); C84.A0 Cutaneous T-cell lymphoma, unspecified, unspecified site
CPT/HCPCS: 36415; 80053; 85025